=== PATIENT | female | born 2000 | race Caucasian/White ===

== ENCOUNTER 2022-07-11 06:01 | Emergency (ER) | payer MEDICAID ==
[~2022-07-11] VITALS: Ht 160 cm; Wt 51.3 kg
--- NOTE | 2022-07-11 06:20 | NUR ---
Patient triaged and placed in waiting room. VSS and patient appears in no acute distress at this time. Accompanied by partner, awaiting available bed, and MD notified of need for MSE.
[2022-07-11 06:23] VITALS: BP_SYST 133
--- NOTE | 2022-07-11 06:26 | NUR ---
DR. WONG WITH PATIENT IN TRIAGE FOR MSE.
--- NOTE | 2022-07-11 06:37 | NUR ---
Received report from YOEL Waggoner; assuming care at this time.
--- NOTE | 2022-07-11 06:40 | NUR ---
Patient presents to ED from home with c/o indegestion that radiates to chest x1 day. Patient reports pain 0/10 at this time. Patient is G1 A1. Patient reports she took 3 tums at home with no relief. Patient accompanied by significant other who is at bedside. Patient denies abd pain, N/V/D, and/or vaginal pain/bleeding a this time. ER MD Yates made aware.
--- NOTE | 2022-07-11 06:44 | NUR ---
Lab at bedside.
[2022-07-11] MEDS ORDERED: MAG-AL HYDROX/SIMETH 30 ML UDC PO ONE (06:45)
[2022-07-11 06:56] LABS: BASOPHILS % (AUTO) 0.4 % (0.0-2.0); EOSINOPHILS # (AUTO) 0.3 K/uL (0.0-0.4); EOSINOPHILS % (AUTO) 3.6 % (0.0-4.0); HEMOGLOBIN 12.6 g/dL (12.0-16.0); LYMPHOCYTES # (AUTO) 1.8 K/uL (1.0-5.5); LYMPHOCYTES % (AUTO) 20.1 % (20.5-51.5); MEAN CORPUSCULAR HEMOGLOBIN 30 pg (27-31); MEAN CORPUSCULAR HGB CONC 34 % (32-36); MEAN CORPUSCULAR VOLUME 89 fL (79.0-98.0); MONOCYTES # (AUTO) 0.7 K/uL (0.0-1.0); MONOCYTES % (AUTO) 7.4 % (1.7-9.3); NEUTROPHILS # (AUTO) 6.1 K/uL (1.8-7.7); NEUTROPHILS % (AUTO) 68.5 % (40.0-70.0); PLATELET COUNT (AUTO) 209 K/uL (130-430); RED BLOOD CELL COUNT(AUTO) 4.14 MIL/uL (4.2-6.2); RED CELL DISTRIBUTION WIDTH 14.3 % (9.0-15.0); WHITE BLOOD COUNT (AUTO) 8.9 K/uL (4.8-10.8)
--- NOTE | 2022-07-11 06:57 | NUR ---
ER MD Yates examining patient at bedside.
[2022-07-11 07:04] LABS: BILIRUBIN,URINE NEGATIVE (NEGATIVE); BLOOD, URINE NEGATIVE (NEGATIVE); CLARITY/URINE CLEAR (CLEAR); COLOR,URINE YELLOW (YELLOW); GLUCOSE,URINE NEGATIVE (NEGATIVE); KETONES,URINE NEGATIVE (NEGATIVE); LEUKOCYTE ESTERASE ,URINE 2+ (NEGATIVE); NITRITE, URINE NEGATIVE (NEGATIVE); PH,URINE 5.5 (5.0-8.0); PROTEIN URINE NEGATIVE (NEGATIVE); UROBILINOGEN,URINE 0.2 (0.2-1.0)
[2022-07-11 07:09] LABS: ANION GAP 11 (5-15); CALCIUM 9.4 mg/dL (8.4-11.0); CHLORIDE 104 mmol/L (98-107); CREATININE 0.57 mg/dL (0.55-1.30); GLUCOSE 93 mg/dL (70-99); UREA NITROGEN, BLOOD 8 mg/dL (8-21)
[2022-07-11 07:13] LABS: GFR AFRICAN AMERICAN 169 mL/min (>90)
--- NOTE | 2022-07-11 07:15 | NUR ---
Report given to YOEL Brown; assuming care of patient at this time.
--- NOTE | 2022-07-11 07:16 | NUR ---
Received report from YOEL Jones. Pt in no acute distress at this time. Care to be given as ordered by provider.
[2022-07-11 07:36] LABS: BACTERIA,URINE MODERATE /HPF (None Seen); MUCUS,URINE 1+ /LPF (None Seen)
[2022-07-11 07:39] LABS: ALANINE AMINOTRANSFERASE 15 U/L (12-78); ALBUMIN 3.2 g/dL (3.4-4.8); ASPARTATE AMINOTRANSFERASE 17 U/L (10-37); TOTAL BILIRUBIN 0.2 mg/dL (0.0-1.0)
--- NOTE | 2022-07-11 07:42 | NUR ---
Patient transported to ultrasound in no acute distress via wheelchair, accompanied by staff.
[2022-07-11 07:43] LABS: HCG,QUANTITATIVE 42349 mIU/ML (0-6)
[2022-07-11] MEDS ORDERED: NACL 0.9% 1,000 ML IV ONE (07:45)
[2022-07-11] MEDS ORDERED: LIDOCAINE PATCH 5% 1 EA TP STA (10:47)
[2022-07-11] MEDS ORDERED: CEPH-548 PO (10:50)
[2022-07-11] MEDS ORDERED: SUCR1TAB2 PO (10:50)
--- NOTE | 2022-07-11 11:00 | NUR ---
Patient given written and verbal discharge instructions and verbalizes understanding. ER Dr. Trudy MD discussed with patient the results and treatment provided. Patient in stable condition. ID arm band removed. IV catheter removed intact and dressing applied, no active bleeding. Rx of macrobid, cephalexin given. Patient educated on pain management and to follow up with PMD. Pain Scale 2/10. Opportunity for questions provided and answered. Medication side effect fact sheet provided.
== END 2022-07-11 11:00 | disposition home or self-care (01) ==
LOC: SED 06:01
DX: O23.12 Infections of bladder in pregnancy, second trimester (principal); O26.891 Other specified pregnancy related conditions, first trimester; Z3A.16 16 weeks gestation of pregnancy; Z79.899 Other long term (current) drug therapy
CPT/HCPCS: 99285; 96360; 76705; 76805; 71045; 80053; 81000; 84702; 83690; 85025; 87086; 84484; 36415; 93005; J7030